=== PATIENT | female | born 1980 | race Caucasian/White ===

== ENCOUNTER 2017-02-16 10:35 | Emergency (ER) | payer OTHER ==
[~2017-02-16] VITALS: Ht 170.1 cm; Wt 95.3 kg
[~2017-02-16 10:35] MED LIST: AMOXIL500 MG PO; ATIVAN1 MG PO; BACTRIM DS 8001 TA1 PO; BUSPAR5 MG PO; CEPHALEXIN500 M1 PO; CLINDAMYCIN HC300 MG PO; CLINDAMYCIN150 MG PO; DEPAKOTE ER500 MG PO; DEPAKOTE250 MG PO; Depakote ER500 MG PO; ERY-TAB500 MG PO; FLEXERIL10 MG PO; KEFLEX500 MG PO; LOMOTIL 0.025 M1 TA1 PO; MACROBID100 M1 PO; MACRODANTIN100 MG PO; MOTRIN800 MG PO; Motrin,Rufen800 MG PO; NKHM; NORCO 5-325 TA1 EACH PO; PHENERGAN25 M1 PO; Phenergan25 MG PO; RISPERDAL0.5 MG PO; RISPERDAL1 MG PO; RISPERIDONE0.5 M1 PO; ROBITUSSIN DM120 ML PO; TESSALON PERLE100 M1 PO; TIZANIDINE HCL4 M1 PO; TIZANIDINE HCL4 MG PO; TRAMADOL HCL50 MG PO; ULTRAM50 MG PO; VOLTAREN50 MG PO; XANAX0.25 MG PO; ZITHROMAX Z PA250 MG PO; ZOFRAN ODT4 MG SL; ZOFRAN4 MG PO; ZYRTEC10 MG PO
[2017-02-16] MEDS ORDERED: CYCLOBENZAPRINE10 MG PO (11:34)
[2017-02-16] MEDS ORDERED: VISTARIL25 M2 PO (11:34)
== END 2017-02-16 11:31 | disposition home or self-care (01) ==
LOC: ED 10:35
DX: F41.9 Anxiety disorder, unspecified (principal); F17.200 Nicotine dependence, unspecified, uncomplicated; Z98.51 Tubal ligation status; Z98.890 Other specified postprocedural states; Z88.0 Allergy status to penicillin

== ENCOUNTER 2017-03-30 12:45 | Emergency (ER) | payer OTHER ==
[~2017-03-30] VITALS: Ht 170.1 cm; Wt 90.7 kg
[~2017-03-30 12:45] MED LIST changes: +CYCLOBENZAPRINE10 MG PO; +VISTARIL25 M2 PO
[2017-03-30] MEDS ORDERED: Motrin,Rufen800 MG PO (16:50)
== END 2017-03-30 14:58 | disposition home or self-care (01) ==
LOC: ED 12:45
DX: S93.401A Sprain of unspecified ligament of right ankle, initial encounter (principal); S61.217A Laceration without foreign body of left little finger without damage to nail, initial encounter; F17.200 Nicotine dependence, unspecified, uncomplicated; Z88.0 Allergy status to penicillin; V89.2XXA Person injured in unspecified motor-vehicle accident, traffic, initial encounter; Y93.89 Activity, other specified; Y92.413 State road as the place of occurrence of the external cause; Y99.9 Unspecified external cause status

== ENCOUNTER → 2017-04-21 | Outpatient (CLI) | payer OTHER ==
[2017-04-21 10:24] LABS: HEMATOCRIT 44.6 % (37.0-47.0); HEMOGLOBIN 14.9 g/dl (12.0-16.0); MEAN CELL VOLUME 90.7 fl (81.0-99.0); MEAN CORPUSCULAR HGB 30.3 pg (27.0-31.0); MEAN CORPUSCULAR HGB CONC 33.4 g/dl (33.0-37.0); MEAN PLATELET VOLUME 9.3 fl (9.6-12.3); RED BLOOD COUNT 4.92 10*6/uL (4.10-5.10); RED CELL DISTRI WIDTH 13.1 % (0-14.5); WHITE BLOOD COUNT 13.2 10*3/uL (4.8-10.8)
[2017-04-21 10:54] LABS: ALBUMIN 3.7 gm/dl (3.1-4.5); ALKALINE PHOSPHATASE 87 U/L (45-117); BILIRUBIN, TOTAL 0.3 mg/dl (0.2-1.0); BUN 6 mg/dl (7-24); CARBON DIOXIDE 27 mmol/L (21-32); CHLORIDE 109 mmol/L (98-107); CHOLESTEROL 144 mg/dL (<200); EST GLOM FILT AFRICAN AMERICAN > 60 ml/min; GLUCOSE 92 mg/dL (65-99); HDL CHOLESTEROL 46 mg/dl (40-60); LDL CHOLESTEROL 88 mg/dL (9-159); POTASSIUM 4.3 mmol/L (3.5-5.1); SGOT/AST 13 IU/L (3-35); SGPT/ALT 27 U/L (12-78); SODIUM 143 mmol/L (136-145); TOTAL PROTEIN 7.3 gm/dL (6.4-8.2); TRIGLYCERIDES 51 mg/dl (<150); VLDL CHOLESTEROL 10 mg/dL (6-40)
== END | disposition home or self-care (01) ==
LOC: LAB 10:08
PROVIDERS: Family Medicine
DX: M79.642 Pain in left hand (principal); E78.00 Pure hypercholesterolemia, unspecified; E55.9 Vitamin D deficiency, unspecified; R20.9 Unspecified disturbances of skin sensation; R53.83 Other fatigue

== ENCOUNTER → 2017-12-12 | Outpatient (CLI) | payer OTHER | END | disposition home or self-care (01) | LOC: RAD 11:00 | DX: R06.02 Shortness of breath (principal); J02.9 Acute pharyngitis, unspecified; R05 Cough ==

== ENCOUNTER 2020-05-20 22:19 | Emergency (ER) | payer SELFPAY ==
[~2020-05-20] VITALS: Wt 81.6 kg
== END 2020-05-21 01:04 | disposition home or self-care (01) ==
LOC: ED 22:19
DX: S00.03XA Contusion of scalp, initial encounter (principal); F41.9 Anxiety disorder, unspecified; F32.9 Major depressive disorder, single episode, unspecified; F17.200 Nicotine dependence, unspecified, uncomplicated; Z79.899 Other long term (current) drug therapy; X58.XXXA Exposure to other specified factors, initial encounter; Y93.89 Activity, other specified; Y92.89 Other specified places as the place of occurrence of the external cause; Y99.8 Other external cause status